=== PATIENT | male | born 1940 ===

== ENCOUNTER 2018-02-20 08:42 | Inpatient (IN) | payer MEDICARE ==
--- NOTE | 2018-02-20 09:12 | ED PDOC ---
HPI: Abdomen Time Seen by Provider: 02/20/18 09:00 Chief Complaint (Nursing): Abdominal Pain History Per: Patient Onset/Duration Of Symptoms: Hrs (1) Current Symptoms Are (Timing): Still Present Severity: Moderate Location Of Pain/Discomfort: Diffuse Quality Of Discomfort: Unable To Describe Associated Symptoms: Nausea. denies: Fever, Vomiting, Diarrhea Exacerbating Factors: None Alleviating Factors: None Additional Complaint(s): Generalized abd pain and distention assoc with nausea. Denies fever vomiting or diarrhea. Past Medical History Vital Signs: Last Vital Signs Temp 97.4 F L 02/20/18 08:57 Pulse 53 L 02/20/18 11:44 Resp 19 02/20/18 11:44 BP 111/57 L 02/20/18 11:44 Pulse Ox 98 02/20/18 11:44 - Medical History PMH: Gastritis, HTN, Hypercholesterolemia, Hyperlipidemia Other PMH: Ascites - Family History Family History: States: Unknown Family Hx - Allergies Allergies/Adverse Reactions: Allergies Allergy/AdvReac Type Severity Reaction Status Date / Time No Known Allergies Allergy Unverified 02/06/15 09:08 Review of Systems ROS Statement: Except As Marked, All Systems Reviewed And Found Negative Constitutional: Negative for: Fever Gastrointestinal: Positive for: Nausea, Abdominal Pain Physical Exam - Reviewed Nursing Documentation Reviewed: Yes Vital Signs Reviewed: Yes - Physical Exam Appears: Positive for: Non-toxic, No Acute Distress Head Exam: Positive for: ATRAUMATIC, NORMAL INSPECTION, NORMOCEPHALIC Skin: Positive for: Normal Color, Warm, DRY Eye Exam: Positive for: EOMI, Normal appearance, PERRL ENT: Positive for: Normal ENT Inspection Neck: Positive for: Normal, Painless ROM Cardiovascular/Chest: Positive for: Regular Rate, Rhythm Respiratory: Positive for: CNT, Normal Breath Sounds Gastrointestinal/Abdominal: Positive for: Tenderness (LUQ), Distended, Asicites Back: Positive for: Normal Inspection Extremity: Positive for: Normal ROM Neurologic/Psych: Positive for: Alert, Oriented - Laboratory Results Result Diagrams: 02/20/18 09:55 02/20/18 09:55 - ECG O2 Sat by Pulse Oximetry: 99 Disposition - Clinical Impression Clinical Impression: Ascites - Patient ED Disposition Is Patient to be Admitted: Yes - Disposition Disposition Time: 12:13 Condition: FAIR Forms: [employer] (Polish) - Pt Status Changed To: Hospital Disposition Of: Observation - POA Present On Arrival: None
[2018-02-20 10:00] LABS: BASO % 0.2 % (0.0-2.0); EOS % 1.2 % (0.0-4.0); HEMOGLOBIN 11.5 g/dL (12.0-18.0); LYMPH # 0.3 K/uL (1.0-4.3); LYMPH % 8.6 % (20.0-40.0); MEAN CELL VOLUME 98.9 fl (80.0-94.0); MEAN CORPUSCULAR HEMOGLOBIN 34.6 pg (27.0-31.0); MEAN PLATELET VOLUME 9.7 fl (7.2-11.7); MONO # 0.1 K/uL (0.0-0.8); MONO % 3.9 % (0.0-10.0); NEUT # 3.2 K/uL (1.8-7.0); NEUT % 86.1 % (50.0-75.0); NRBC % 0.1 % (0.0-0.0); PLATELET COUNT 130 K/uL (130-400); RBC 3.32 Mil/uL (4.40-5.90); WHITE BLOOD COUNT 3.7 K/uL (4.8-10.8)
[2018-02-20 10:10] LABS: INR 1.4; PROTHROMBIN TIME 15.7 Seconds (9.8-13.1)
[2018-02-20 10:30] LABS: ALB/GLOB RATIO 0.6 (1.0-2.1); ALBUMIN 2.8 g/dL (3.5-5.0); CALCIUM 8.9 mg/dL (8.4-10.2)
[2018-02-20 11:21] LABS: ANISOCYTOSIS SLIGHT; BANDS 6 % (0-2); EOSINOPHIL 3 % (0-7); HYPOCHROMIC SLIGHT; LYMPHOCYTE 10 % (20-50); MONOCYTE 1 % (0-10); NEUTROPHIL 80 % (42-75); PLATELET CLUMPS PRESENT; PLATELET ESTIMATE NORMAL (NORMAL); TOTAL CELLS COUNTED 100
[2018-02-20] MEDS ORDERED: Lidocaine 1% 5ml Abboject IV ONE (14:43)
[2018-02-20] MEDS: Dextrose 5%/Lactated Ringer's 1,000 ML IV SCH (16:56)
[2018-02-20 18:14] LABS: LIPASE 449 U/L (23-300)
[2018-02-20 21:49] LABS: HEPATITIS B SURFACE AG Negative (NEGATIVE)
[2018-02-20 22:07] LABS: HEPATITIS C ANTIBODY NEGATIVE (NEGATIVE)
--- NOTE | 2018-02-21 00:48 | CP.PCM.PCO ---
Progress - Progress Progress: 77 YO M admitted for ascitis had a new onset of gross hematuia tonight . Nurse paged the senior technical writer to come evaluate the patient. Patient states he had decreased urine output yesterday and this is the first time he has urinated today. Denies any family history of kidney stones . Patient is resting comfortably denies abdominal or flank pain. Denies any nausea, vomiting or diarrhea. Vitals and labs reviewed. Patient is not on any blood thiners. Gen: NAD CVS: S1S2 RRR Resp: CTAB no w/r/r Abd: Uniformly distended secondary to ascitis, soft, slight left lower quadrant tenderness Back: No CVA tenderness noted B/L A/P - PAtient resting comfortably - Will follow up with morning labs - Patient is scheduled for imaging studies in the am - Monitor vitals and urinary output -Send urine analysis
--- NOTE | 2018-02-21 00:57 | CON ---
Copied To: Mac Yoo MD Attending MD: Mac Yoo MD DATE: 02/20/2018 REFERRED BY: Vel Joyner MD HISTORY OF PRESENT ILLNESS: This is a very pleasant 77-year-old gentleman who has a known history of cirrhosis and portal hypertension who came in as an outpatient to here for an MRI, and the MRI was not done as he was complaining of abdominal distention and pain. Instead, he was sent to the ER. He is now referred now for GI evaluation. At the time of my evaluation this afternoon, he was lying comfortably in bed. He denies any fever, chills, nausea, or vomiting. There has been no blood per rectum, melena, or any loose stools. He just has some abdominal pain and discomfort over the last 24 hours and some increasing abdominal distention. At home, he was taking metformin, anti-lipid medication, and lisinopril. ALLERGIES: HE HAS NO KNOWN DRUG ALLERGIES. PAST MEDICAL HISTORY: He is a [id number] diabetic, hypertensive, hyperlipidemic, history of cirrhosis, portal hypertension with a known history of ascites. PAST SURGICAL HISTORY: Noncontributory. FAMILY HISTORY: Noncontributory. SOCIAL HISTORY: He is a former drinker and smoker. PHYSICAL EXAMINATION: GENERAL: He is a well-developed, well-nourished elderly gentleman. Awake, alert, and oriented x3, in no acute distress. VITAL SIGNS: His vital signs are stable. He is afebrile. ABDOMEN: His abdomen is markedly distended with fluid and is quite tender to palpation. There is no palpable mass or lesion fluid wave. EXTREMITIES: He does have 1 to 2+ bilateral lower extremity edema as well. GENITOURINARY: He does not have any scrotal edema. LABORATORY DATA: CBC is remarkable for white count 3.7, H and H 11.5 and 32.8, and platelet count 130. His INR is 1.4. His SMA-7 is remarkable for BUN and creatinine 33 and 1.7. His LFTs are remarkable for bilirubin of 3.4, AST of 104, ALT of 58, alk phos of 130. His ammonia is normal at 30. The MRI is pending. IMPRESSION AND PLAN: This is a 77-year-old gentleman with multiple medical problems including cirrhosis, portal hypertension and ascites, comes in with abdominal distention and pain and discomfort. No white blood cell count. No fevers. I doubt it is spontaneous bacterial peritonitis; however, I certainly would like to perform a paracentesis in this gentleman, and that has been requested Interventional Radiology to evaluate, so that they can do a diagnostic paracentesis as well as a therapeutic paracentesis to keep this patient more comfortable. I have also submitted the printout of the MRI done while here as an inpatient to rule out any underlying hepatic masses. We will follow along with you. Thank you very much for this referral. Mac Yoo MD
[2018-02-21 01:10] LABS: URINE BILIRUBIN NEGATIVE (NEGATIVE); URINE COLOR RED (YELLOW); URINE GLUCOSE (UA) NEG (Normal); URINE PROTEIN NEGATIVE (NEGATIVE); URINE UROBILINOGEN 0.2-1.0 mg/dL (0.2-1.0)
[2018-02-21 01:14] LABS: URINE BLOOD LARGE (NEGATIVE); URINE CLARITY Turbid (Clear)
[2018-02-21 01:18] LABS: URINE BACTERIA TRACE (<OCC)
[2018-02-21 01:19] LABS: URINE LEUKOCYTE ESTERASE NEGATIVE Leu/uL (Negative)
[2018-02-21] MEDS: Dextrose 5%/Lactated Ringer's 1,000 ML IV SCH (05:34)
[2018-02-21 06:48] LABS: BASO % 0.3 % (0.0-2.0); HEMOGLOBIN 10.7 g/dL (12.0-18.0); LYMPH # 0.5 K/uL (1.0-4.3); LYMPH % 6.8 % (20.0-40.0); MEAN CELL VOLUME 99.6 fl (80.0-94.0); MEAN CORPUSCULAR HEMOGLOBIN 34.7 pg (27.0-31.0); MEAN CORPUSCULAR HGB CONC 34.9 g/dL (33.0-37.0); MEAN PLATELET VOLUME 10.1 fl (7.2-11.7); MONO # 0.4 K/uL (0.0-0.8); MONO % 5.7 % (0.0-10.0); NEUT # 6.5 K/uL (1.8-7.0); NEUT % 87.2 % (50.0-75.0); NRBC % 0.1 % (0.0-0.0); RBC 3.07 Mil/uL (4.40-5.90); RED CELL DISTRIBUTION WIDTH 15.4 % (11.5-14.5); WHITE BLOOD COUNT 7.5 K/uL (4.8-10.8)
[2018-02-21 07:25] LABS: ALB/GLOB RATIO 0.6 (1.0-2.1); ALBUMIN 2.4 g/dL (3.5-5.0); CALCIUM 8.5 mg/dL (8.4-10.2)
--- NOTE | 2018-02-21 08:25 | CP.PCM.HP ---
History of Present Illness - History of Present Illness History of Present Illness: 77 yo M with diabetes and hyptertension, R eye blindness, admitted due to abdominal pain due to ascites with liver dysfunction, likely due to long time alcohol use in the past. Pt reports that for the past 2 months he has had increase in abdominal girth and increased abdominal pain; states he did not know he had any liver issues in the past. He was sent by his PMD Dr. Esperanza Paige to GI Dr. Sarmiento/Dr. Yoo, and then he was referred for MRI. Pt came to get outpt MRI yesterday, but was in too much pain to complete the scan, and was sent to the ED, from where he was admitted for therapeutic and diagnostic paracentesis. In the ED, he denied chest pain, shortness of breath, issues with voiding and stooling. PMH: DM2, HLD, HTN PSurg hx: hernia repair "many years ago" FH: noncontributory Allergies: NKDA Meds: metformin, rosuvastatin, hctz-lisinopril Overnight, pt experienced hematuria, states this happened for the first time. Present on Admission - Present on Admission Any Indicators Present on Admission: No Review of Systems - Review of Systems Review of Systems: as per HPI Past Patient History - Past Social History Smoking Status: Former Smoker Alcohol: Other (not current, but used to drink heavily on weekends in the past) Drugs: Denies - CARDIAC Hx Cardiac Disorders: Yes Hx Hypercholesterolemia: Yes Hx Hypertension: Yes - PULMONARY Hx Respiratory Disorders: No - NEUROLOGICAL Hx Neurological Disorder: No - HEENT Hx HEENT Problems: Yes Hx Blind: Yes (rt eye) - RENAL Hx Chronic Kidney Disease: No - ENDOCRINE/METABOLIC Hx Endocrine Disorders: Yes Hx Diabetes Mellitus Type 1: Yes - HEMATOLOGICAL/ONCOLOGICAL Hx Blood Disorders: No Hx AIDS: No Hx Human Immunodeficiency Virus (HIV): No - INTEGUMENTARY Hx Dermatological Problems: No - MUSCULOSKELETAL/RHEUMATOLOGICAL Hx Musculoskeletal Disorders: No Hx Falls: No - GASTROINTESTINAL Hx Gastrointestinal Disorders: Yes Hx Gastritis: Yes - GENITOURINARY/GYNECOLOGICAL Hx Genitourinary Disorders: No - PSYCHIATRIC Hx Psychophysiologic Disorder: No Hx Substance Use: No - SURGICAL HISTORY Hx Surgeries: Yes Hx Herniorrhaphy: Yes Other/Comment: abdominal hernia, right eye blind - ANESTHESIA Hx Anesthesia: Yes Hx Anesthesia Reactions: No Meds Allergies/Adverse Reactions: Allergies Allergy/AdvReac Type Severity Reaction Status Date / Time No Known Allergies Allergy Unverified 02/06/15 09:08 Physical Exam - Constitutional Appears: No Acute Distress - Eye Exam Eye Exam: Normal appearance Additional comments: R eye mostly shut; patient can open; iris/pupil cloudy; pt is blind in R eye - ENT Exam ENT Exam: Mucous Membranes Moist - Respiratory Exam Respiratory Exam: Clear to Auscultation Bilateral, NORMAL BREATHING PATTERN - Cardiovascular Exam Cardiovascular Exam: REGULAR RHYTHM, +S1, +S2 - GI/Abdominal Exam GI & Abdominal Exam: Distended, Soft, Tenderness (diffuse) Additional comments: + fluid wave - Extremities Exam Extremities exam: Negative for: calf tenderness, pedal edema - Neurological Exam Neurological exam: Alert - Psychiatric Exam Psychiatric exam: Normal Affect - Skin Skin Exam: Normal Color, Warm Results - Vital Signs Recent Vital Signs: Last Vital Signs Temp 97.4 F L 02/21/18 08:24 Pulse 60 02/21/18 08:24 Resp 18 02/21/18 08:24 BP 121/57 L 02/21/18 08:24 Pulse Ox 95 02/21/18 08:24 - Labs Result Diagrams: 02/21/18 06:10 02/21/18 06:10 Labs: Laboratory Results - last 24 hr 02/20/18 02/20/18 02/20/18 08:58 09:55 09:55 WBC 3.7 L RBC 3.32 L Hgb 11.5 L Hct 32.8 L MCV 98.9 H MCH 34.6 H MCHC 35.0 RDW 15.0 H Plt Count 130 MPV 9.7 Neut % (Auto) 86.1 H Lymph % (Auto) 8.6 L [place] % (Auto) 3.9 Eos % (Auto) 1.2 Baso % (Auto) 0.2 Neut # (Auto) 3.2 Lymph # (Auto) 0.3 L [place] # (Auto) 0.1 Eos # (Auto) 0.0 Baso # (Auto) 0.0 Neutrophils % (Manual) 80 H Band Neutrophils % 6 H Lymphocytes % (Manual) 10 L Monocytes % (Manual) 1 Eosinophils % (Manual) 3 Platelet Estimate Normal Plt Clumps, EDTA Present Hypochromasia (manual) Slight Anisocytosis (manual) Slight PT INR APTT Sodium 139 Potassium 4.9 Chloride 110 H Carbon Dioxide 21 L Anion Gap 13 BUN 33 H Creatinine 1.7 H Est GFR ( Amer) 48 Est GFR (Non-Af Amer) 39 POC Glucose (mg/dL) 121 H Random Glucose 115 H Calcium 8.9 Total Bilirubin 3.4 H AST 104 H ALT 58 Alkaline Phosphatase 130 H Ammonia Total Protein 7.3 Albumin 2.8 L Globulin 4.5 H Albumin/Globulin Ratio 0.6 L Lipase Urine Color Urine Clarity Urine pH Ur Specific [place] Urine Protein Urine Glucose (UA) Urine Ketones Urine Blood Urine Nitrate Urine Bilirubin Urine Urobilinogen Ur Leukocyte Esterase Urine RBC (Auto) Urine Microscopic WBC Urine Bacteria Hep Bs Antigen Hepatitis C Antibody 02/20/18 02/20/18 02/20/18 09:55 09:55 15:41 WBC RBC Hgb Hct MCV MCH MCHC RDW Plt Count MPV Neut % (Auto) Lymph % (Auto) [place] % (Auto) Eos % (Auto) Baso % (Auto) Neut # (Auto) Lymph # (Auto) [place] # (Auto) Eos # (Auto) Baso # (Auto) Neutrophils % (Manual) Band Neutrophils % Lymphocytes % (Manual) Monocytes % (Manual) Eosinophils % (Manual) Platelet Estimate Plt Clumps, EDTA Hypochromasia (manual) Anisocytosis (manual) PT 15.7 H INR 1.4 APTT Sodium Potassium Chloride Carbon Dioxide Anion Gap BUN Creatinine Est GFR ( Amer) Est GFR (Non-Af Amer) POC Glucose (mg/dL) 101 Random Glucose Calcium Total Bilirubin AST ALT Alkaline Phosphatase Ammonia 30 Total Protein Albumin Globulin Albumin/Globulin Ratio Lipase Urine Color Urine Clarity Urine pH Ur Specific [place] Urine Protein Urine Glucose (UA) Urine Ketones Urine Blood Urine Nitrate Urine Bilirubin Urine Urobilinogen Ur Leukocyte Esterase Urine RBC (Auto) Urine Microscopic WBC Urine Bacteria Hep Bs Antigen Hepatitis C Antibody 02/20/18 02/20/18 02/21/18 17:51 21:31 00:20 WBC RBC Hgb Hct MCV MCH MCHC RDW Plt Count MPV Neut % (Auto) Lymph % (Auto) [place] % (Auto) Eos % (Auto) Baso % (Auto) Neut # (Auto) Lymph # (Auto) [place] # (Auto) Eos # (Auto) Baso # (Auto) Neutrophils % (Manual) Band Neutrophils % Lymphocytes % (Manual) Monocytes % (Manual) Eosinophils % (Manual) Platelet Estimate Plt Clumps, EDTA Hypochromasia (manual) Anisocytosis (manual) PT INR APTT Sodium Potassium Chloride Carbon Dioxide Anion Gap BUN Creatinine Est GFR ( Amer) Est GFR (Non-Af Amer) POC Glucose (mg/dL) 210 H Random Glucose Calcium Total Bilirubin AST ALT Alkaline Phosphatase Ammonia Total Protein Albumin Globulin Albumin/Globulin Ratio Lipase 449 H Urine Color Red Urine Clarity Turbid Urine pH 7.0 Ur Specific [place] 1.053 H Urine Protein Negative Urine Glucose (UA) Neg Urine Ketones Negative Urine Blood Large Urine Nitrate Negative Urine Bilirubin Negative Urine Urobilinogen 0.2-1.0 Ur Leukocyte Esterase Negative Urine RBC (Auto) 55406 H Urine Microscopic WBC 5 Urine Bacteria Trace Hep Bs Antigen Negative Hepatitis C Antibody Negative 02/21/18 02/21/18 02/21/18 05:47 06:10 06:10 WBC 7.5 D RBC 3.07 L Hgb 10.7 L Hct 30.6 L MCV 99.6 H MCH 34.7 H MCHC 34.9 RDW 15.4 H Plt Count 93 L D MPV 10.1 Neut % (Auto) 87.2 H Lymph % (Auto) 6.8 L [place] % (Auto) 5.7 Eos % (Auto) 0.0 Baso % (Auto) 0.3 Neut # (Auto) 6.5 Lymph # (Auto) 0.5 L [place] # (Auto) 0.4 Eos # (Auto) 0.0 Baso # (Auto) 0.0 Neutrophils % (Manual) Band Neutrophils % Lymphocytes % (Manual) Monocytes % (Manual) Eosinophils % (Manual) Platelet Estimate Plt Clumps, EDTA Hypochromasia (manual) Anisocytosis (manual) PT INR APTT Sodium 138 Potassium 5.1 H Chloride 109 H Carbon Dioxide 21 L Anion Gap 13 BUN 44 H Creatinine 2.5 H Est GFR ( Amer) 31 Est GFR (Non-Af Amer) 25 POC Glucose (mg/dL) 188 H Random Glucose 196 H Calcium 8.5 Total Bilirubin 2.1 H AST 72 H D ALT 51 Alkaline Phosphatase 95 Ammonia Total Protein 6.7 Albumin 2.4 L Globulin 4.2 H Albumin/Globulin Ratio 0.6 L Lipase Urine Color Urine Clarity Urine pH Ur Specific [place] Urine Protein Urine Glucose (UA) Urine Ketones Urine Blood Urine Nitrate Urine Bilirubin Urine Urobilinogen Ur Leukocyte Esterase Urine RBC (Auto) Urine Microscopic WBC Urine Bacteria Hep Bs Antigen Hepatitis C Antibody 02/21/18 06:10 WBC RBC Hgb Hct MCV MCH MCHC RDW Plt Count MPV Neut % (Auto) Lymph % (Auto) [place] % (Auto) Eos % (Auto) Baso % (Auto) Neut # (Auto) Lymph # (Auto) [place] # (Auto) Eos # (Auto) Baso # (Auto) Neutrophils % (Manual) Band Neutrophils % Lymphocytes % (Manual) Monocytes % (Manual) Eosinophils % (Manual) Platelet Estimate Plt Clumps, EDTA Hypochromasia (manual) Anisocytosis (manual) PT INR APTT 36.1 Sodium Potassium Chloride Carbon Dioxide Anion Gap BUN Creatinine Est GFR ( Amer) Est GFR (Non-Af Amer) POC Glucose (mg/dL) Random Glucose Calcium Total Bilirubin AST ALT Alkaline Phosphatase Ammonia Total Protein Albumin Globulin Albumin/Globulin Ratio Lipase Urine Color Urine Clarity Urine pH Ur Specific [place] Urine Protein Urine Glucose (UA) Urine Ketones Urine Blood Urine Nitrate Urine Bilirubin Urine Urobilinogen Ur Leukocyte Esterase Urine RBC (Auto) Urine Microscopic WBC Urine Bacteria Hep Bs Antigen Hepatitis C Antibody Assessment & Plan (1) Ascites Status: Acute (2) Hematuria Status: Acute (3) Hypertension Status: Chronic (4) Hyperlipidemia Status: Chronic - Assessment and Plan (Free Text) Plan: - admitted to med surg - for paracentesis today; fluid to be sent for cytology, analysis - aldactone, lasix - GI consult - Dr. Yoo - Urology consult- Dr. Fleming - IV hydration for kidney function improvement - GI/hepatic diet - scds Pt seen/discussed with Dr. Joyner.
[2018-02-21] MEDS ORDERED: Patient's Own Med (Lisinopril/Hydrochlorothiazide [Lisinopril-Hctz 20-25 Mg Tab] 1 TAB) PO SCH (09:00)
[2018-02-21 11:25] LABS: INR 1.6; PROTHROMBIN TIME 17.4 Seconds (9.8-13.1)
[2018-02-21] MEDS ORDERED: Lidocaine 1% 5ml Abboject IV ONE (11:25)
[2018-02-21] MEDS ORDERED: Glucagon Recombinant 1 mg Inj IM PRN (12:02)
[2018-02-21] MEDS ORDERED: Dextrose 50% SYRINGE Inj (50 ml) IV PRN (12:02)
--- NOTE | 2018-02-21 12:06 | PCM.SURG1 ---
Surgeon's Initial Post Op Note - Surgeon's Notes Surgeon: Ramo Shaw MD [employer] Operator: NONE Type of Anesthesia: Local Pre-Operative Diagnosis: Ascites Operative Findings: US showed moderate ascites Post-Operative Diagnosis: Ascites Operation Performed: US guided paracentesis Specimen/Specimens Removed: 3 liters of straw colored fluid Estimated Blood Loss: EBL {In ML}: 0 Blood Products Given: N/A Drains Used: No Drains Post-Op Condition: Fair Date of Surgery/Procedure: 02/21/18 Time of Surgery/Procedure: 12:00
[2018-02-21] MEDS: Insulin Regular 100 units/ml SC SCH ×3 (12:28→22:33)
[2018-02-21 12:54] LABS: BODY FLUID TYPE PERITONEAL/ASCITES
--- NOTE | 2018-02-21 13:48 | US ---
Date of Procedure: 02/21/2018 PROCEDURE: Ultrasound-guided paracentesis, CPT 50039 Medications: 7 cc 1% Lidocaine HISTORY: Ascites, abdominal pain TECHNIQUE: Following informed consent , the patient was placed supine on the stretcher and the site was marked. A limited abdominal ultrasound was performed that showed a large amount of intra-abdominal fluid. Procedural time out was called and the Pt's abdomen was marked and prepped and draped in the usual sterile fashion. Ultrasound-guided large volume paracentesis performed. A total of 3 liters of straw colored fluid was removed without complication. IMPRESSION: Ultrasound-guided large volume paracentesis.
[2018-02-21 14:59] LABS: BF GROSS APPEARANCE TURBID (CLEAR); BODY FLUID MONO/MACROPHAGE 3 % (0-0); BODY FLUID TOTAL COUNT 100 (0-0)
[2018-02-22 06:34] LABS: HEMOGLOBIN 12.3 g/dL (12.0-18.0); MEAN CELL VOLUME 96.5 fl (80.0-94.0); MEAN CORPUSCULAR HEMOGLOBIN 32.5 pg (27.0-31.0); MEAN CORPUSCULAR HGB CONC 33.7 g/dL (33.0-37.0); RBC 3.79 Mil/uL (4.40-5.90); RED CELL DISTRIBUTION WIDTH 15.3 % (11.5-14.5); WHITE BLOOD COUNT 11.1 K/uL (4.8-10.8)
[2018-02-22 07:39] LABS: ALB/GLOB RATIO 0.6 (1.0-2.1); ALBUMIN 2.7 g/dL (3.5-5.0); CALCIUM 8.9 mg/dL (8.4-10.2)
[2018-02-22] MEDS: Insulin Regular 100 units/ml SC SCH ×3 (09:07→21:57)
--- NOTE | 2018-02-22 09:53 | CP.PCM.PN ---
Subjective - Date & Time of Evaluation Date of Evaluation: 02/21/18 Time of Evaluation: 15:10 - Subjective Subjective: no abd pain Objective - Vital Signs/Intake and Output Vital Signs (last 24 hours): Temp Pulse Resp BP Pulse Ox 98.1 F 80 20 106/62 97 02/22/18 08:08 02/22/18 08:08 02/22/18 08:08 02/22/18 09:10 02/22/18 08:08 - Medications Medications: Current Medications Acetaminophen (Tylenol 325mg Tab) 650 mg PO Q6 PRN PRN Reason: Pain, moderate (4-7) Last Admin: 02/22/18 04:50 Dose: 650 mg Dextrose (Dextrose 50% Inj) 0 ml IV STAT PRN; Protocol PRN Reason: Hypoglycemia Protocol Dextrose (Glutose 15) 0 gm PO ONCE PRN; Protocol PRN Reason: Hypoglycemia Protocol Furosemide (Lasix) 40 mg PO DAILY [facility] Last Admin: 02/22/18 09:10 Dose: 40 mg Glucagon (Glucagen Diagnostic Kit) 0 mg IM STAT PRN; Protocol PRN Reason: Hypoglycemia Protocol Hydrochlorothiazide (Hydrodiuril) 25 mg PO DAILY [facility] Insulin Human Regular (Humulin R) 0 units SC ACHS DELANEY PRN Reason: Protocol Last Admin: 02/22/18 09:07 Dose: Not Given Lisinopril (Zestril) 20 mg PO DAILY [facility] Last Admin: 02/21/18 09:08 Dose: 20 mg Spironolactone (Aldactone) 50 mg PO DAILY [facility] Last Admin: 02/22/18 09:10 Dose: 50 mg - Labs Labs: 02/22/18 06:10 02/22/18 06:10 PT 17.4 Seconds (9.8-13.1) H 02/21/18 11:06 INR 1.6 02/21/18 11:06 APTT 36.1 Seconds (25.6-37.1) 02/21/18 06:10 - Head Exam Head Exam: NORMOCEPHALIC - ENT Exam ENT Exam: Normal Exam - Neck Exam Neck Exam: Normal Inspection - Respiratory Exam Respiratory Exam: Clear to Ausculation Bilateral, NORMAL BREATHING PATTERN - GI/Abdominal Exam GI & Abdominal Exam: Soft, Normal Bowel Sounds Assessment and Plan - Assessment and Plan (Free Text) Assessment: 77 yo male with decompensated cirrhosis doing well post paracentesis Cr Cl to low for MRI wth contrast dc planning for outpatient MRI
--- NOTE | 2018-02-22 10:39 | CP.PCM.PN ---
Subjective - Date & Time of Evaluation Date of Evaluation: 02/22/18 Time of Evaluation: 10:38 - Subjective Subjective: c/o pain Objective - Vital Signs/Intake and Output Vital Signs (last 24 hours): Temp Pulse Resp BP Pulse Ox 98.1 F 80 20 106/62 97 02/22/18 08:08 02/22/18 08:08 02/22/18 08:08 02/22/18 09:10 02/22/18 08:08 - Medications Medications: Current Medications Acetaminophen (Tylenol 325mg Tab) 650 mg PO Q6 PRN PRN Reason: Pain, moderate (4-7) Last Admin: 02/22/18 04:50 Dose: 650 mg Dextrose (Dextrose 50% Inj) 0 ml IV STAT PRN; Protocol PRN Reason: Hypoglycemia Protocol Dextrose (Glutose 15) 0 gm PO ONCE PRN; Protocol PRN Reason: Hypoglycemia Protocol Furosemide (Lasix) 40 mg PO DAILY [facility] Last Admin: 02/22/18 09:10 Dose: 40 mg Glucagon (Glucagen Diagnostic Kit) 0 mg IM STAT PRN; Protocol PRN Reason: Hypoglycemia Protocol Hydrochlorothiazide (Hydrodiuril) 25 mg PO DAILY [facility] Insulin Human Regular (Humulin R) 0 units SC ACHS [place] PRN Reason: Protocol Last Admin: 02/22/18 09:07 Dose: Not Given Lisinopril (Zestril) 20 mg PO DAILY [facility] Last Admin: 02/21/18 09:08 Dose: 20 mg Spironolactone (Aldactone) 50 mg PO DAILY [facility] Last Admin: 02/22/18 09:10 Dose: 50 mg - Labs Labs: 02/22/18 06:10 02/22/18 06:10 PT 17.4 Seconds (9.8-13.1) H 02/21/18 11:06 INR 1.6 02/21/18 11:06 APTT 36.1 Seconds (25.6-37.1) 02/21/18 06:10 - Neck Exam Neck Exam: Normal Inspection - Respiratory Exam Respiratory Exam: Clear to Ausculation Bilateral, NORMAL BREATHING PATTERN - Cardiovascular Exam Cardiovascular Exam: REGULAR RHYTHM - GI/Abdominal Exam GI & Abdominal Exam: Distended, Soft, Tenderness, Normal Bowel Sounds Assessment and Plan - Assessment and Plan (Free Text) Assessment: 77 yo male with ascites now with SBP Abx ID input KUB consider kirby for urinary outflow obstruction
[2018-02-22] MEDS ORDERED: Lactated Ringer's 500 ML IV ONE (12:15)
[2018-02-22] MEDS ORDERED: Lidocaine 2% Jelly (Uro-Jet) ONE (12:29)
[2018-02-22] MEDS ORDERED: Lidocaine 2% Jelly (Uro-Jet) TOP ONE (12:35)
[2018-02-22] MEDS ORDERED: Sodium Chloride 0.9% 500 ML IV ONE (13:00)
[2018-02-22] MEDS: Albumin Human 25% (12.5 gm/50 ml) IV SCH ×2 (14:38→22:30)
--- NOTE | 2018-02-22 19:00 | CP.PCM.CON ---
History of Present Illness - History of Present Illness History of Present Illness: 77 yo M admitted due to abdominal pain due to ascites with liver dysfunction, likely due to long time alcohol use in the past. Pt reports that for the past 2 months he has had increase in abdominal girth and increased abdominal pain; . Pt came to get outpt MRI yesterday, but was in too much pain to complete the scan, and was sent to the ED, from where he was admitted for therapeutic and diagnostic paracentesis. In the ED, he denied chest pain, shortness of breath, issues with voiding referred for ID eval of SBP r/o occult malignancy PMH: DM2, HLD, HTN with diabetes and hyptertension, R eye blindness, PSurg hx: hernia repair "many years ago" FH: noncontributory Allergies: NKDA Meds: metformin, rosuvastatin, hctz-lisinopril Review of Systems - Review of Systems All systems: reviewed and no additional remarkable complaints except - Constitutional Constitutional: As Per HPI - EENT Eyes: absent: As Per HPI, Blind Spots, Blurred Vision, Change in Vision, Decreased Night Vision, Diplopia, Discharge, Dry Eye, Exophthalmos, Floaters, Irritation, Itchy Eyes, Loss of Peripheral Vision, Pain, Photophobia, Requires Corrective Lenses, Sees Flashes, Spots in Vision, Tunnel Vision, Other Visual Disturbances, Loss of Vision, Other Ears: As Per HPI Nose/Mouth/Throat: absent: As Per HPI, Epistaxis, Nasal Congestion, Nasal Discharge, Nasal Obstruction, Nasal Trauma, Nose Pain, Post Nasal Drip, Sinus Pain, Sinus Pressure, Bleeding Gums, Change in Voice, Dental Pain, Dry Mouth, Dysphagia, Halitosis, Hoarsness, Lip Swelling, Mouth Lesions, Mouth Pain, Odynophagia, Sore Throat, Throat Swelling, Tongue Swelling, Facial Pain, Neck Pain, Neck Mass, Other - Cardiovascular Cardiovascular: absent: As Per HPI, Acrocyanosis, Chest Pain, Chest Pain at Rest , Chest Pain with Activity, Claudication, Diaphoresis, Dyspnea, Dyspnea on Exertion, Edema, Irregular Heart Rhythm, Pain Radiating to Arm/Neck/Jaw, Leg Edema, Leg Ulcers, Lightheadedness, Orthopnea, Palpitations, Paroxysmal Nocturnal Dyspnea, Pedal Edema, Radiating Pain, Rapid Heart Rate, Slow Heart Rate, Syncope, Other - Respiratory Respiratory: absent: As Per HPI, Cough, Dyspnea, Hemoptysis, Dyspnea on Exertion , Wheezing, Snoring, Stridor, Pain on Inspiration, Chest Congestion, Excessive Mucous Production, Change in Mucous Color, Pain with Coughing, Other - Gastrointestinal Gastrointestinal: As Per HPI, Abdominal Pain - Genitourinary Genitourinary: As Per HPI - Musculoskeletal Musculoskeletal: absent: As Per HPI, Abnormal Gait, Arthralgias, Atrophy, Back Pain, Deformity, Joint Swelling, Limited Range of Motion, Loss of Height, Muscle Cramps, Muscle Weakness, Myalgias, Neck Pain, Numbness, Radiating Pain into Limb, Stiffness, Tingling, Other - Integumentary Integumentary: absent: As Per HPI, Acne, Alopecia, Bleeding Lesions, Change in Hair, Change in Nails, Change in Pigmentation, Changing Lesions, Dry Skin, Erythema, Furuncle, Hirsutism, Lesions, New Lesions, Non-Healing Lesions, Photosensitivity, Pruritus, Rash, Skin Pain, Skin Ulcer, Sores, Striae, Swelling , Unusual Bruising, Wounds, Jaundice, Other - Neurological Neurological: absent: As Per HPI, Abnormal Gait, Abnormal Hearing, Abnormal Movements, Abnormal Speech, Behavioral Changes, Burning Sensations, Confusion, Convulsions, Disequilibrium, Dizziness, Numbness, Focal Weakness, Frequent Falls , Headaches, Lack of Coordination, Loss of Vision, Memory Loss, Paresthesias, Radicular Pain, Restless Legs, Sensory Deficit, Syncope, Tingling, Tremor, Vertigo, Weakness, Other Visual Disturbances, Other - Psychiatric Psychiatric: absent: As Per HPI, Abnormal Sleep Pattern, Anhedonia, Anxiety, Auditory Hallucinations, Behavioral Changes, Change in Appetite, Change in Libido, Confusion, Depression, Difficulty Concentrating, Hallucinations, Homicidal Ideation, Hopelessness, Irritability, Memory Loss, Mood Swings, Panic Attacks, Paranoia, Suicidal Ideation, Visual Hallucinations, Tactile Hallucinations, Other - Endocrine Endocrine: absent: As Per HPI, Change in Body Appearance, Change in Libido, Cold Intolorance, Deepening of Voice, Excessive Sweating, Fatigue, Flushing, Heat Intolorance, Increase in Ring/Shoe/Hat Size, Palpitations, Polydipsia, Polyphagia, Polyuria, Other - Hematologic/Lymphatic Hematologic: absent: As Per HPI, Easy Bleeding, Easy Bruising, Lymphadenopathy, Other Past Patient History - Past Social History Smoking Status: Former Smoker Alcohol: Other (not current, but used to drink heavily on weekends in the past) Drugs: Denies - CARDIAC Hx Cardiac Disorders: Yes Hx Hypercholesterolemia: Yes Hx Hypertension: Yes - PULMONARY Hx Respiratory Disorders: No - NEUROLOGICAL Hx Neurological Disorder: No - HEENT Hx HEENT Problems: Yes Hx Blind: Yes (rt eye) - RENAL Hx Chronic Kidney Disease: No - ENDOCRINE/METABOLIC Hx Endocrine Disorders: Yes Hx Diabetes Mellitus Type 1: Yes - HEMATOLOGICAL/ONCOLOGICAL Hx Blood Disorders: No Hx AIDS: No Hx Human Immunodeficiency Virus (HIV): No - INTEGUMENTARY Hx Dermatological Problems: No - MUSCULOSKELETAL/RHEUMATOLOGICAL Hx Musculoskeletal Disorders: No Hx Falls: No - GASTROINTESTINAL Hx Gastrointestinal Disorders: Yes Hx Gastritis: Yes - GENITOURINARY/GYNECOLOGICAL Hx Genitourinary Disorders: No - PSYCHIATRIC Hx Psychophysiologic Disorder: No Hx Substance Use: No - SURGICAL HISTORY Hx Surgeries: Yes Hx Herniorrhaphy: Yes Other/Comment: abdominal hernia, right eye blind - ANESTHESIA Hx Anesthesia: Yes Hx Anesthesia Reactions: No Meds Allergies/Adverse Reactions: Allergies Allergy/AdvReac Type Severity Reaction Status Date / Time No Known Allergies Allergy Unverified 02/06/15 09:08 - Medications Medications: Current Medications Acetaminophen (Tylenol 325mg Tab) 650 mg PO Q6 PRN PRN Reason: Pain, moderate (4-7) Last Admin: 02/22/18 13:30 Dose: 650 mg Albumin Human (Albumin Human 25% (12.5 Gm/50 Ml)) 50 gm IV Q8H [facility] Last Admin: 02/22/18 14:38 Dose: 50 gm Dextrose (Dextrose 50% Inj) 0 ml IV STAT PRN; Protocol PRN Reason: Hypoglycemia Protocol Dextrose (Glutose 15) 0 gm PO ONCE PRN; Protocol PRN Reason: Hypoglycemia Protocol Furosemide (Lasix) 40 mg PO DAILY [facility] Last Admin: 02/22/18 09:10 Dose: 40 mg Glucagon (Glucagen Diagnostic Kit) 0 mg IM STAT PRN; Protocol PRN Reason: Hypoglycemia Protocol Hydrochlorothiazide (Hydrodiuril) 25 mg PO DAILY [facility] Ceftriaxone Sodium 1 gm/ (Sodium Chloride) 100 mls @ 100 mls/hr IVPB DAILY [facility] PRN Reason: Protocol Last Admin: 02/22/18 11:52 Dose: 100 mls/hr Insulin Human Regular (Humulin R) 0 units SC ACHS [facility] PRN Reason: Protocol Last Admin: 02/22/18 09:07 Dose: Not Given Lisinopril (Zestril) 20 mg PO DAILY [facility] Last Admin: 02/21/18 09:08 Dose: 20 mg Spironolactone (Aldactone) 50 mg PO DAILY [facility] Last Admin: 02/22/18 09:10 Dose: 50 mg Physical Exam - Constitutional Appears: Non-toxic, Chronically Ill - Head Exam Head Exam: NORMOCEPHALIC - Eye Exam Eye Exam: PERRL. absent: Scleral icterus - ENT Exam ENT Exam: Mucous Membranes Dry - Neck Exam Neck exam: Negative for: Lymphadenopathy - Respiratory Exam Respiratory Exam: Decreased Breath Sounds, Rhonchi - Cardiovascular Exam Cardiovascular Exam: REGULAR RHYTHM, +S1, +S2 - GI/Abdominal Exam GI & Abdominal Exam: Diminished Bowel Sounds, Distended, Guarding, Soft. absent : Organomegaly, Pulsatile Mass, Rebound, Rigid, Tenderness - Rectal Exam Rectal Exam: Deferred - Exam Exam: NORMAL INSPECTION - Extremities Exam Extremities exam: Positive for: pedal edema, pedal pulses present. Negative for : calf tenderness, tenderness - Back Exam Back exam: absent: CVA tenderness (L), CVA tenderness (R), paraspinal tenderness - Neurological Exam Neurological exam: Alert, CN II-XII Intact, Oriented x3, Reflexes Normal - Psychiatric Exam Psychiatric exam: Normal Mood - Skin Skin Exam: Dry Results - Vital Signs Recent Vital Signs: Last Vital Signs Temp 97.5 F L 02/22/18 17:00 Pulse 84 02/22/18 17:30 Resp 19 02/22/18 17:30 BP 97/53 L 02/22/18 17:30 Pulse Ox 100 02/22/18 17:30 - Labs Result Diagrams: 02/22/18 06:10 02/22/18 06:10 Labs: Laboratory Results - last 24 hr 02/21/18 02/22/18 02/22/18 22:05 05:55 06:10 WBC 11.1 H RBC 3.79 L Hgb 12.3 Hct 36.6 MCV 96.5 H D MCH 32.5 H MCHC 33.7 RDW 15.3 H Plt Count 135 Sodium Potassium Chloride Carbon Dioxide Anion Gap BUN Creatinine Est GFR ( Amer) Est GFR (Non-Af Amer) POC Glucose (mg/dL) 115 H 101 Random Glucose Calcium Total Bilirubin AST ALT Alkaline Phosphatase Total Protein Albumin Globulin Albumin/Globulin Ratio 02/22/18 02/22/18 06:10 14:20 WBC RBC Hgb Hct MCV MCH MCHC RDW Plt Count Sodium 138 Potassium 4.8 Chloride 106 Carbon Dioxide 19 L Anion Gap 18 BUN 58 H Creatinine 2.6 H Est GFR ( Amer) 29 Est GFR (Non-Af Amer) 24 POC Glucose (mg/dL) 121 H Random Glucose 111 H Calcium 8.9 Total Bilirubin 2.0 H AST 69 H ALT 41 Alkaline Phosphatase 114 Total Protein 7.2 Albumin 2.7 L Globulin 4.4 H Albumin/Globulin Ratio 0.6 L Assessment & Plan (1) [id number] kidney injury Status: Acute (2) Ascites Status: Acute (3) Hematuria Status: Acute (4) Hyperlipidemia Status: Chronic (5) Hypertension Status: Chronic (6) CKD (chronic kidney disease) stage 3, GFR 30-59 ml/min Status: Suspected - Assessment and Plan (Free Text) Assessment: await OR cultures cont iv zosyn vanco for now pending cultures will need min 7 days rx consider eval
--- NOTE | 2018-02-22 19:48 | CP.PCM.PN ---
Subjective - Date & Time of Evaluation Date of Evaluation: 02/22/18 Time of Evaluation: 11:00 - Subjective Subjective: 77 y/o M complains of mild abdominal pain. Bladder scan performed by bedside, 1006cc of urine retention identified. Perry catheter ordered, urology made aware. Pt afebrile overnight. Objective - Vital Signs/Intake and Output Vital Signs (last 24 hours): Temp Pulse Resp BP Pulse Ox 97.5 F L 84 19 97/53 L 100 02/22/18 17:00 02/22/18 17:30 02/22/18 17:30 02/22/18 17:30 02/22/18 17:30 Intake and Output: 02/22/18 02/23/18 18:59 06:59 Intake Total 50 Output Total 10276 Balance -26761 - Medications Medications: Current Medications Acetaminophen (Tylenol 325mg Tab) 650 mg PO Q6 PRN PRN Reason: Pain, moderate (4-7) Last Admin: 02/22/18 13:30 Dose: 650 mg Albumin Human (Albumin Human 25% (12.5 Gm/50 Ml)) 50 gm IV Q8H [facility] Last Admin: 02/22/18 14:38 Dose: 50 gm Dextrose (Dextrose 50% Inj) 0 ml IV STAT PRN; Protocol PRN Reason: Hypoglycemia Protocol Dextrose (Glutose 15) 0 gm PO ONCE PRN; Protocol PRN Reason: Hypoglycemia Protocol Furosemide (Lasix) 40 mg PO DAILY [facility] Last Admin: 02/22/18 09:10 Dose: 40 mg Glucagon (Glucagen Diagnostic Kit) 0 mg IM STAT PRN; Protocol PRN Reason: Hypoglycemia Protocol Hydrochlorothiazide (Hydrodiuril) 25 mg PO DAILY [facility] Piperacillin Sod/Tazobactam (Sod 2.25 gm/ Sodium Chloride) 100 mls @ 100 mls/ hr IVPB Q8 [facility] PRN Reason: Protocol Insulin Human Regular (Humulin R) 0 units SC ACHS [facility] PRN Reason: Protocol Last Admin: 02/22/18 09:07 Dose: Not Given Lisinopril (Zestril) 20 mg PO DAILY [facility] Last Admin: 02/21/18 09:08 Dose: 20 mg Spironolactone (Aldactone) 50 mg PO DAILY [facility] Last Admin: 02/22/18 09:10 Dose: 50 mg - Labs Labs: 02/22/18 06:10 02/22/18 06:10 PT 17.4 Seconds (9.8-13.1) H 02/21/18 11:06 INR 1.6 02/21/18 11:06 APTT 36.1 Seconds (25.6-37.1) 02/21/18 06:10 - Constitutional Appears: Non-toxic - Head Exam Head Exam: ATRAUMATIC, NORMAL INSPECTION - Eye Exam Eye Exam: EOMI - Neck Exam Neck Exam: Full ROM. absent: Meningismus - Respiratory Exam Respiratory Exam: NORMAL BREATHING PATTERN. absent: Rhonchi, Wheezes - Cardiovascular Exam Cardiovascular Exam: +S1, +S2 - GI/Abdominal Exam GI & Abdominal Exam: Distended, Soft, Tenderness (diffuse) - Extremities Exam Extremities Exam: absent: Calf Tenderness - Neurological Exam Neurological Exam: Alert, Awake, Oriented x3 Assessment and Plan - Assessment and Plan (Free Text) Assessment: 77 y/o M with PMHx of alcoholism admitted for evaluation of abdominal distension , ascitis and hematuria. --Urinary retention discovered. Urology, Dr Fleming, planing to perform cystosocopy. --GI on board, Dr Sarmiento. --SBP found after paracentesis. --On Zosyn Q8H. --F/u ID, Dr Hayes, recommendation --After cystoscopy, pt developed hypotension. Albumin Q8H was ordered after consulting with GI specialist. --Pt transfered to Telemetry due to hypotension. Monitor vital signs and cardiac monitoring. --IV Morphine administered once due to severe pain after cystoscopy. --Continue management as ordered.
--- NOTE | 2018-02-23 00:30 | OP ---
Copied To: Shawna Fleming MD Attending MD: Shawna Fleming MD PROCEDURE DATE: 02/22/2018 PREOPERATIVE DIAGNOSES: Urinary retention, unable to pass Perry catheters on the floor. POSTOPERATIVE DIAGNOSES: Urinary retention, unable to pass Perry catheters on the floor. PROCEDURE PERFORMED: Cystoscopy, insertion of three-way Perry catheter. DESCRIPTION OF PROCEDURE: The patient was placed on the operating room table in a dorsal lithotomy position, given local and IV sedation at this time with a #22 cystoscope I entered into the bladder atraumatically. There were some small clots in the bladder itself. I was able then to insert #22 three-way Perry catheter. The bladder was free of any acute lesions. Ureteral orifices were identified. The three-way Perry catheter was inserted. CBI was begun. The urine outflow was essentially clear. Shawna Fleming MD
[2018-02-23 05:20] LABS: HEMOGLOBIN 10.4 g/dL (12.0-18.0); MEAN CELL VOLUME 96.3 fl (80.0-94.0); MEAN CORPUSCULAR HEMOGLOBIN 31.9 pg (27.0-31.0); MEAN CORPUSCULAR HGB CONC 33.1 g/dL (33.0-37.0); RBC 3.26 Mil/uL (4.40-5.90); RED CELL DISTRIBUTION WIDTH 15.6 % (11.5-14.5); WHITE BLOOD COUNT 14.4 K/uL (4.8-10.8)
[2018-02-23] MEDS: Albumin Human 25% (12.5 gm/50 ml) IV SCH ×2 (05:36→16:50)
[2018-02-23 05:54] LABS: ALBUMIN 3.5 g/dL (3.5-5.0); CALCIUM 9.4 mg/dL (8.4-10.2)
[2018-02-23] MEDS: Insulin Regular 100 units/ml SC SCH ×3 (06:43→16:46)
[2018-02-23 12:20] LABS: HEPATITIS A IGM NEGATIVE (NEGATIVE)
--- NOTE | 2018-02-23 13:43 | US ---
Date of service: 02/23/2018 HISTORY: ascites, arf, ? hepatorenal sx COMPARISON: None. TECHNIQUE: Sonographic evaluation of the abdomen. FINDINGS: LIVER: Measures 13.6 cm. Mildly heterogeneous echogenicity of the liver parenchyma. Nodular contour consistent with hepatic cirrhosis. No mass. No intrahepatic biliary ductal dilatation. Hepatofugal blood flow demonstrated in the portal vein consistent with portal hypertension and reversal of flow. GALLBLADDER: Contracted gallbladder. Gallstones noted. Diffusely thickened wall, nonspecific. This may be seen in the setting of hepatic cirrhosis without cholecystitis. However, cholecystitis must also be considered. COMMON BILE DUCT: Measures 5 mm. No stones. No dilatation. PANCREAS: Limited visualization. RIGHT KIDNEY: Measures 11.9cm. Normal echogenicity. No calculus, mass, or hydronephrosis. LEFT KIDNEY: Measures 11.9cm. Normal echogenicity. No calculus, mass, or hydronephrosis. SPLEEN: Normal in size and contour. No mass. AORTA: No aneurysmal dilatation. IVC: Unremarkable. OTHER FINDINGS: Extensive ascites IMPRESSION: Hepatic cirrhosis. Portal hypertension and reversal of blood flow in the portal vein. Extensive ascites. Contracted gallbladder with marked mural thickening and cholelithiasis. Cannot rule out cholecystitis though the findings are nonspecific.
--- NOTE | 2018-02-23 14:57 | CP.PCM.PN ---
Subjective - Date & Time of Evaluation Date of Evaluation: 02/23/18 Time of Evaluation: 10:30 - Subjective Subjective: 77 y/o M reports that his abdomen is growing. Pain is tolerable for now. Kirby catheter in place with presence of light red urine on bag. Pt denies chest pain , SOB, N/V, dysuria. Pt afebrile with No acute events overnight. Objective - Vital Signs/Intake and Output Vital Signs (last 24 hours): Temp Pulse Resp BP Pulse Ox 97.3 F L 108 H 20 111/63 95 02/23/18 11:55 02/23/18 11:55 02/23/18 11:55 02/23/18 11:55 02/23/18 11:55 Intake and Output: 02/23/18 02/23/18 06:59 18:59 Intake Total 700 Output Total 600 Balance 100 - Medications Medications: Current Medications Acetaminophen (Tylenol 325mg Tab) 650 mg PO Q6 PRN PRN Reason: Pain, moderate (4-7) Last Admin: 02/23/18 12:44 Dose: 650 mg Albumin Human (Albumin Human 25% (12.5 Gm/50 Ml)) 50 gm IV Q8H [facility] Last Admin: 02/23/18 05:36 Dose: 50 gm Dextrose (Dextrose 50% Inj) 0 ml IV STAT PRN; Protocol PRN Reason: Hypoglycemia Protocol Dextrose (Glutose 15) 0 gm PO ONCE PRN; Protocol PRN Reason: Hypoglycemia Protocol Furosemide (Lasix) 40 mg PO DAILY [facility] Last Admin: 02/23/18 08:41 Dose: Not Given Glucagon (Glucagen Diagnostic Kit) 0 mg IM STAT PRN; Protocol PRN Reason: Hypoglycemia Protocol Hydrochlorothiazide (Hydrodiuril) 25 mg PO DAILY [facility] Piperacillin Sod/Tazobactam (Sod 2.25 gm/ Sodium Chloride) 100 mls @ 100 mls/ hr IVPB Q8 [facility] PRN Reason: Protocol Last Admin: 02/23/18 08:32 Dose: 100 mls/hr Insulin Human Regular (Humulin R) 0 units SC ACHS [facility] PRN Reason: Protocol Last Admin: 02/23/18 11:55 Dose: Not Given Lactulose (Enulose) 20 gm PO TID [facility] Last Admin: 02/23/18 12:44 Dose: 20 gm Lisinopril (Zestril) 20 mg PO DAILY [facility] Last Admin: 02/21/18 09:08 Dose: 20 mg Rifaximin (Xifaxan) 550 mg PO BID [facility] PRN Reason: Protocol Spironolactone (Aldactone) 50 mg PO DAILY [facility] Last Admin: 02/22/18 09:10 Dose: 50 mg - Labs Labs: 02/23/18 04:55 02/23/18 04:55 PT 17.4 Seconds (9.8-13.1) H 02/21/18 11:06 INR 1.6 02/21/18 11:06 APTT 36.1 Seconds (25.6-37.1) 02/21/18 06:10 - Constitutional Appears: No Acute Distress - Eye Exam Additional comments: Loss of vision on Right eye. - ENT Exam ENT Exam: Mucous Membranes Dry - Neck Exam Neck Exam: Full ROM. absent: Meningismus - Respiratory Exam Respiratory Exam: NORMAL BREATHING PATTERN. absent: Rhonchi, Wheezes - Cardiovascular Exam Cardiovascular Exam: REGULAR RHYTHM, +S1, +S2 - GI/Abdominal Exam GI & Abdominal Exam: Soft, Normal Bowel Sounds. absent: Guarding, Rigid, Tenderness - Extremities Exam Extremities Exam: Normal Inspection. absent: Calf Tenderness - Neurological Exam Neurological Exam: Alert, Awake, Oriented x3 Assessment and Plan - Assessment and Plan (Free Text) Assessment: 77 y/o M with PMHx of alcoholism admitted for evaluation of abdominal distension , ascitis and hematuria. --Creatinine raising, acute renal failure, possibly hepatorenal dyndrome. Nephrology consult ordered. --Amonia level and potassium elevated. D/c all diuretics. Lactulose ordered. US abdomen ordered. --Abdominal distension. IR will be contacted for paracentesis. --Urinary retention, kirby in place. --Cystosocopy performed last afternoon. Awaiting results. --Urology on board, Dr Fleming, --GI on board, Dr Sarmiento. --SBP found after paracentesis. --On Zosyn Q8H. --F/u ID recommendations, Dr Hayes, --Monitor BP as pt is becomin hypotensive. --Continue management as ordered.
[2018-02-23] MEDS ORDERED: Sodium Chloride 0.9% 1,000 ML IV SCH (17:15)
--- NOTE | 2018-02-23 17:26 | PCM.RRT ---
KITCHEN[facility] Nurse Assessment - Situation [facility]ENHAND Reason for Call: Tachycardia, Hypotension I.Reason for [facility]EN[facility] - A) Acute Change in Patient: (Select all that apply): Staff member or family is worried about patient Subjective: 77 Y/O male with PMHx of alcoholism admitted for ascitis, hepatorenal syndrome and SBP. KITCHENHAND was called for hypotension. Initial Pulse:109, SPO2 90%, BP 76/42, RR 33. SPO2 improved to 100% with nonrebreather mask. Patient was hypotensive, lethargic and tachycardic. ABG collected and started on 1L NS bolus. Extremity cold and clammy. Patient transferred to ICU for further management. - Neurological Status (Select all that apply): Lethargic Plan - Assessment of Findings&Treatment Plan 77 Y/O male with PMHx of alcoholism admitted for ascitis, hepatorenal syndrome and SBP. KITCHENHAND was called for hypotension. - Vitals: Pulse:109, SPO2 90%, BP 76/42, RR 33. - ABG ordered - Started on NS 1L bolus - Patient transferred to ICU for further management.
[2018-02-23 17:28] LABS: ABG ALLEN TEST YES; ARTERIAL BLOOD GAS HCO3 4.8 mmol/L (21-28); ARTERIAL BLOOD GAS O2 SAT 100.8 % (95-98); ARTERIAL BLOOD GAS PCO2 23 mm/Hg (35-45); ARTERIAL BLOOD GAS PH 6.95 (7.35-7.45); ARTERIAL BLOOD GAS PO2 194 mm/Hg (80-100); ARTERIAL BLOOD GAS TCO2 5.8 mmol/L (22-28)
[2018-02-23] MEDS ORDERED: SODIUM BICARBONATE IV SCH (17:45)
[2018-02-23] MEDS ORDERED: SODIUM CHLORIDE 0.45% IV SCH (17:45)
[2018-02-23] MEDS: Sodium Bicarbonate 7.5% (0.9 MEQ/ML) 50ML INJ IV SCH ×2 (18:00→18:01)
--- NOTE | 2018-02-23 18:25 | CP.PCM.CON ---
History of Present Illness - History of Present Illness History of Present Illness: 77 yo M with diabetes and hypertension, R eye blindness, admitted due to abdominal pain due to ascites with liver dysfunction. p/w abdominal ascites, recently tapped. Was scheduled to get another paracentesis today, but was cancelled due to instability. Rapid Response called for AMS, hypotension, and hypoxia. Review of Systems - Review of Systems Systems not reviewed;Unavailable: Altered Mental Status Past Patient History - Past Social History Smoking Status: Former Smoker Alcohol: Other (not current, but used to drink heavily on weekends in the past) Drugs: Denies - CARDIAC Hx Cardiac Disorders: Yes Hx Hypercholesterolemia: Yes Hx Hypertension: Yes - PULMONARY Hx Respiratory Disorders: No - NEUROLOGICAL Hx Neurological Disorder: No - HEENT Hx HEENT Problems: Yes Hx Blind: Yes (rt eye) - RENAL Hx Chronic Kidney Disease: No - ENDOCRINE/METABOLIC Hx Endocrine Disorders: Yes Hx Diabetes Mellitus Type 1: Yes - HEMATOLOGICAL/ONCOLOGICAL Hx Blood Disorders: No Hx AIDS: No Hx Human Immunodeficiency Virus (HIV): No - INTEGUMENTARY Hx Dermatological Problems: No - MUSCULOSKELETAL/RHEUMATOLOGICAL Hx Musculoskeletal Disorders: No Hx Falls: No - GASTROINTESTINAL Hx Gastrointestinal Disorders: Yes Hx Gastritis: Yes - GENITOURINARY/GYNECOLOGICAL Hx Genitourinary Disorders: No - PSYCHIATRIC Hx Psychophysiologic Disorder: No Hx Substance Use: No - SURGICAL HISTORY Hx Surgeries: Yes Hx Herniorrhaphy: Yes Other/Comment: abdominal hernia, right eye blind - ANESTHESIA Hx Anesthesia: Yes Hx Anesthesia Reactions: No Meds Allergies/Adverse Reactions: Allergies Allergy/AdvReac Type Severity Reaction Status Date / Time No Known Allergies Allergy Unverified 02/06/15 09:08 - Medications Medications: Current Medications Acetaminophen (Tylenol 325mg Tab) 650 mg PO Q6 PRN PRN Reason: Pain, moderate (4-7) Last Admin: 02/23/18 12:44 Dose: 650 mg Albumin Human (Albumin Human 25% (12.5 Gm/50 Ml)) 50 gm IV Q8H [facility] Last Admin: 02/23/18 16:50 Dose: Not Given Dextrose (Dextrose 50% Inj) 0 ml IV STAT PRN; Protocol PRN Reason: Hypoglycemia Protocol Dextrose (Glutose 15) 0 gm PO ONCE PRN; Protocol PRN Reason: Hypoglycemia Protocol Furosemide (Lasix) 40 mg PO DAILY [facility] Last Admin: 02/23/18 08:41 Dose: Not Given Glucagon (Glucagen Diagnostic Kit) 0 mg IM STAT PRN; Protocol PRN Reason: Hypoglycemia Protocol Haloperidol Lactate (Haldol) 5 mg IVP Q6 PRN PRN Reason: Agitation Hydrochlorothiazide (Hydrodiuril) 25 mg PO DAILY [facility] Piperacillin Sod/Tazobactam (Sod 2.25 gm/ Sodium Chloride) 100 mls @ 100 mls/ hr IVPB Q8 [facility] PRN Reason: Protocol Last Admin: 02/23/18 16:50 Dose: Not Given Sodium Chloride (Sodium Chloride 0.9%) 1,000 mls @ 999 mls/hr IV .Q1H1M [facility] Stop: 02/24/18 17:15 Last Admin: 02/23/18 18:04 Dose: 999 mls/hr Sodium Bicarbonate 133.8 meq/ (Sodium Chloride) 1,150 mls @ 125 mls/hr IV .Q9H12M [facility] Stop: 02/24/18 17:37 Last Admin: 02/23/18 18:05 Dose: 125 mls/hr Insulin Human Regular (Humulin R) 0 units SC ACHS [facility] PRN Reason: Protocol Last Admin: 02/23/18 16:46 Dose: Not Given Lactulose (Enulose) 20 gm PO TID [facility] Last Admin: 02/23/18 16:46 Dose: Not Given Lisinopril (Zestril) 20 mg PO DAILY [facility] Last Admin: 02/21/18 09:08 Dose: 20 mg Rifaximin (Xifaxan) 550 mg PO BID [facility] PRN Reason: Protocol Spironolactone (Aldactone) 50 mg PO DAILY [facility] Last Admin: 02/22/18 09:10 Dose: 50 mg Physical Exam - Constitutional Appears: Cachectic, Other (jaundiced) - Head Exam Head Exam: ATRAUMATIC, NORMAL INSPECTION, NORMOCEPHALIC - Eye Exam Eye Exam: EOMI, Normal appearance, PERRL - ENT Exam ENT Exam: Mucous Membranes Dry - Respiratory Exam Respiratory Exam: Clear to Auscultation Bilateral, NORMAL BREATHING PATTERN - Cardiovascular Exam Cardiovascular Exam: REGULAR RHYTHM - GI/Abdominal Exam GI & Abdominal Exam: Distended, Hypoactive Bowel Sounds - Extremities Exam Extremities exam: Positive for: normal inspection - Back Exam Back exam: NORMAL INSPECTION - Neurological Exam Neurological exam: Altered - Psychiatric Exam Psychiatric exam: Agitated Results - Vital Signs Recent Vital Signs: Last Vital Signs Temp 97.3 F L 02/23/18 11:55 Pulse 132 H 02/23/18 17:16 Resp 18 02/23/18 17:16 BP 96/64 L 02/23/18 17:16 Pulse Ox 95 02/23/18 11:55 - Labs Result Diagrams: 02/23/18 04:55 02/23/18 04:55 Labs: Laboratory Results - last 24 hr 02/20/18 02/22/18 02/22/18 12:45 20:11 21:56 WBC RBC Hgb Hct MCV MCH MCHC RDW Plt Count pCO2 pO2 HCO3 ABG pH ABG Total CO2 ABG O2 Saturation ABG Base Excess Tawanda Test ABG Potassium A-a O2 Difference Glucose Lactate FiO2 Blood Gas Comments Crit Value Called To Crit Value Called By Crit Value Read Back Blood Gas Notified Time Sodium Potassium Chloride Carbon Dioxide Anion Gap BUN Creatinine Est GFR ( Amer) Est GFR (Non-Af Amer) POC Glucose (mg/dL) 189 H Random Glucose Calcium Phosphorus Magnesium Total Bilirubin AST ALT Alkaline Phosphatase Ammonia Total Protein Albumin Globulin Albumin/Globulin Ratio Prostate Specific Ag Arterial Blood Potassium Fluid Albumin 0.6 Random Vancomycin Hepatitis A IgM Ab Negative Hepatitis A Ab Total Antibody pos 02/23/18 02/23/18 02/23/18 04:42 04:55 04:55 WBC 14.4 H RBC 3.26 L Hgb 10.4 L Hct 31.4 L MCV 96.3 H MCH 31.9 H MCHC 33.1 RDW 15.6 H Plt Count 137 pCO2 pO2 HCO3 ABG pH ABG Total CO2 ABG O2 Saturation ABG Base Excess Tawanda Test ABG Potassium A-a O2 Difference Glucose Lactate FiO2 Blood Gas Comments Crit Value Called To Crit Value Called By Crit Value Read Back Blood Gas Notified Time Sodium 139 Potassium 6.0 H Chloride 104 Carbon Dioxide 18 L Anion Gap 23 H BUN 68 H Creatinine 3.9 H Est GFR ( Amer) 18 Est GFR (Non-Af Amer) 15 POC Glucose (mg/dL) 118 H Random Glucose 98 Calcium 9.4 Phosphorus 8.0 H Magnesium 1.8 Total Bilirubin 2.3 H AST 137 H D ALT 54 Alkaline Phosphatase 61 Ammonia Total Protein 7.0 Albumin 3.5 D Globulin 3.5 Albumin/Globulin Ratio 1.0 Prostate Specific Ag 2.13 Arterial Blood Potassium Fluid Albumin Random Vancomycin Hepatitis A IgM Ab Hepatitis A Ab Total 02/23/18 02/23/18 02/23/18 04:55 04:55 11:21 WBC RBC Hgb Hct MCV MCH MCHC RDW Plt Count pCO2 pO2 HCO3 ABG pH ABG Total CO2 ABG O2 Saturation ABG Base Excess Tawanda Test ABG Potassium A-a O2 Difference Glucose Lactate FiO2 Blood Gas Comments Crit Value Called To Crit Value Called By Crit Value Read Back Blood Gas Notified Time Sodium Potassium Chloride Carbon Dioxide Anion Gap BUN Creatinine Est GFR ( Amer) Est GFR (Non-Af Amer) POC Glucose (mg/dL) 98 Random Glucose Calcium Phosphorus Magnesium Total Bilirubin AST ALT Alkaline Phosphatase Ammonia 76 H D Total Protein Albumin Globulin Albumin/Globulin Ratio Prostate Specific Ag Arterial Blood Potassium Fluid Albumin Random Vancomycin 8.4 Hepatitis A IgM Ab Hepatitis A Ab Total 02/23/18 02/23/18 16:34 17:21 WBC RBC Hgb Hct MCV MCH MCHC RDW Plt Count pCO2 23 L pO2 194 H HCO3 4.8 L* ABG pH 6.95 L* ABG Total CO2 5.8 L ABG O2 Saturation 100.8 H ABG Base Excess -25.8 L Tawanda Test Yes ABG Potassium 5.2 A-a O2 Difference 490.0 Glucose 31 L* Lactate 17.3 H* FiO2 100.0 Blood Gas Comments Lac=17.3 Crit Value Called To kiana Garcia Crit Value Called By 22 Crit Value Read Back Y Blood Gas Notified Time 1727 Sodium 135.0 Potassium Chloride 99.0 Carbon Dioxide Anion Gap BUN Creatinine Est GFR ( Amer) Est GFR (Non-Af Amer) POC Glucose (mg/dL) 51 L Random Glucose Calcium Phosphorus Magnesium Total Bilirubin AST ALT Alkaline Phosphatase Ammonia Total Protein Albumin Globulin Albumin/Globulin Ratio Prostate Specific Ag Arterial Blood Potassium 5.2 Fluid Albumin Random Vancomycin Hepatitis A IgM Ab Hepatitis A Ab Total Assessment & Plan (1) Hepatic encephalopathy Assessment and Plan: 77 yo M with diabetes and hyptertension, R eye blindness, admitted due to abdominal pain due to ascites with liver dysfunction. p/w spontaneous bacterial peritonitis. Neuro: hepatic and metabolic encephalopathy. Haldol prn for agitation. Continue Rifaximin and Lactulose. Pulm: no acute issues, breathing spontaneously on 2L [place] oxygen. CV: hypotensive, will start albumin bolusing. Hem: anemia of chronic disease Renal: severe metabolic lactic acidosis secondary to liver failure. Starting bicarb drip. Hematuria s/p cystoscopy (02/22), urology aware. Endo: DM type 2, SISS for coverage GI: NPO. end stage liver cirrhosis, mortality extremely high. ID: sepsis from spontaneous bacterial peritonitis, continue Zosyn. DVT proph - heparin sq GI proph - not currently indicated kirby for strict I/O's during acute illness Code status - full code Patient has no family, only a neighbor is listed and she does not want to make decisions about him. Extremely poor prognosis with high mortality risk. Critical Care Time spent 35 minutes Multi-disciplinary rounds were performed with house staff, nursing, speech therapy, respiratory therapy, pharmacy and nutrition with integrated input from the primary team/attending and other consulting services. The documented time is cumulative and includes review of patient data/exams/labs/chart review and examination of the patient on rounds and throughout the day; time is exclusive of any procedures or teaching time. Status: Acute
[2018-02-23] MEDS ORDERED: Dexmedetomidine Hydrochloride 400 MCG in Sodium Chloride 0.9% 96 ML IV SCH (18:36)
--- NOTE | 2018-02-23 19:42 | CP.PCM.PN ---
Subjective - Date & Time of Evaluation Date of Evaluation: 02/23/18 Time of Evaluation: 07:00 - Subjective Subjective: 77 yo M admitted due to abdominal pain due to ascites with liver dysfunction, likely due to long time alcohol use in the past. Had paracentesis for suspected SBP with worsening renal function Now had rapid response due to resp failure Objective - Vital Signs/Intake and Output Vital Signs (last 24 hours): Temp Pulse Resp BP Pulse Ox 97.3 F L 132 H 18 96/64 L 95 02/23/18 11:55 02/23/18 17:16 02/23/18 17:16 02/23/18 17:16 02/23/18 11:55 - Medications Medications: Current Medications Acetaminophen (Tylenol 325mg Tab) 650 mg PO Q6 PRN PRN Reason: Pain, moderate (4-7) Last Admin: 02/23/18 12:44 Dose: 650 mg Albumin Human (Albumin Human 25% (12.5 Gm/50 Ml)) 50 gm IV Q8H [facility] Last Admin: 02/23/18 16:50 Dose: Not Given Dextrose (Dextrose 50% Inj) 0 ml IV STAT PRN; Protocol PRN Reason: Hypoglycemia Protocol Dextrose (Glutose 15) 0 gm PO ONCE PRN; Protocol PRN Reason: Hypoglycemia Protocol Furosemide (Lasix) 40 mg PO DAILY [facility] Last Admin: 02/23/18 08:41 Dose: Not Given Glucagon (Glucagen Diagnostic Kit) 0 mg IM STAT PRN; Protocol PRN Reason: Hypoglycemia Protocol Haloperidol Lactate (Haldol) 5 mg IVP Q6 PRN PRN Reason: Agitation Last Admin: 02/23/18 18:35 Dose: 5 mg Hydrochlorothiazide (Hydrodiuril) 25 mg PO DAILY [facility] Piperacillin Sod/Tazobactam (Sod 2.25 gm/ Sodium Chloride) 100 mls @ 100 mls/ hr IVPB Q8 [facility] PRN Reason: Protocol Last Admin: 02/23/18 16:50 Dose: Not Given Sodium Chloride (Sodium Chloride 0.9%) 1,000 mls @ 999 mls/hr IV .Q1H1M [facility] Stop: 02/24/18 17:15 Last Admin: 02/23/18 18:04 Dose: 999 mls/hr Sodium Bicarbonate 133.8 meq/ (Sodium Chloride) 1,150 mls @ 125 mls/hr IV .Q9H12M [facility] Stop: 02/24/18 17:37 Last Admin: 02/23/18 18:05 Dose: 125 mls/hr Dexmedetomidine HCl 400 mcg/ (Sodium Chloride) 100 mls @ 4.08 mls/hr IV .Q24H [facility]; 0.2 MCG/KG/HR PRN Reason: Protocol Last Admin: 02/23/18 18:46 Dose: 0.2 mcg/kg/hr, 4.08 mls/hr Norepinephrine Bitartrate 16 (mg/ Dextrose) 266 mls @ 2.49 mls/hr IV .Q24H [facility] PRN Reason: 2.5 MCG/MIN Insulin Human Regular (Humulin R) 0 units SC ACHS [facility] PRN Reason: Protocol Last Admin: 02/23/18 16:46 Dose: Not Given Lactulose (Enulose) 20 gm PO TID [facility] Last Admin: 02/23/18 16:46 Dose: Not Given Lisinopril (Zestril) 20 mg PO DAILY [facility] Last Admin: 02/21/18 09:08 Dose: 20 mg Rifaximin (Xifaxan) 550 mg PO BID [facility] PRN Reason: Protocol Spironolactone (Aldactone) 50 mg PO DAILY [facility] Last Admin: 02/22/18 09:10 Dose: 50 mg - Labs Labs: 02/23/18 04:55 02/23/18 04:55 PT 17.4 Seconds (9.8-13.1) H 02/21/18 11:06 INR 1.6 02/21/18 11:06 APTT 36.1 Seconds (25.6-37.1) 02/21/18 06:10 - Constitutional Appears: In Acute Distress, Confused, Chronically Ill - Head Exam Head Exam: NORMOCEPHALIC Additional comments: intuibated - Eye Exam Eye Exam: Scleral icterus - ENT Exam ENT Exam: Mucous Membranes Dry - Neck Exam Neck Exam: absent: Lymphadenopathy - Respiratory Exam Respiratory Exam: Decreased Breath Sounds - Cardiovascular Exam Cardiovascular Exam: REGULAR RHYTHM - GI/Abdominal Exam GI & Abdominal Exam: Distended, Tenderness, Diminished Bowel Sounds - Rectal Exam Rectal Exam: Deferred - Exam Exam: NORMAL INSPECTION - Extremities Exam Extremities Exam: absent: Pedal Edema - Back Exam Back Exam: absent: CVA tenderness (L), CVA tenderness (R) - Neurological Exam Neurological Exam: Altered Assessment and Plan (1) [id number] kidney injury Status: Acute (2) Ascites Status: Acute (3) Hematuria Status: Acute (4) Hyperlipidemia Status: Chronic (5) Hypertension Status: Chronic (6) CKD (chronic kidney disease) stage 3, GFR 30-59 ml/min Status: Suspected - Assessment and Plan (Free Text) Assessment: hepatorenal syndrome sepsis resp failure r/o SBP r/o ischemic bowel poor prognosis IV rx reordered
--- NOTE | 2018-02-23 19:49 | PCM.ANES ---
Anesthesia Emergent Intubation - Diagnosis Working Diagnosis:: Cardiac arrest - Consult Reason for Consult:: Respiratory failure folloing ROS - Intubation Attempts Previous Number of Intubation Attempts:: 0 - Pre-Intubation Vital Signs Blood Pressure: 38/25 Heart Rate: 88 Respiratory Rate: 0 O2 Sat: 0 (undetectably by pulse oximetry) FIO2: 100 Oxygen Delivery Method: Ambu-Bag Level Of Consciousness: Comatose/Unresponsive - Airway Management Oropharyngeal Area Suctioned: Yes PreOxygenation: 100 (By RT) Inhalation: No Rapid Sequence: No Cricoid Pressure: No Possible Aspiration: No (No gastric contents seen on DL unknown prior to laryngoscopy) - Method of Intubation Intubation Method: Oral ETT ETT Size: 8 Lipline@: 23 Easy: Yes Atramatic: Yes - Intubation Devices Frederic Blade Size Used: 3 Nancy Forcepts Used: No [place] Scope Used: No Fiber Optic Scope: No - Placement Confirmation Breath Sounds Present & Equal Bilaterally: Yes Gurgling Sounds Not Audible at Epigastrum: Yes Positive EtCO2: Yes Portable CXR: Yes (Ordered by primary team) Recommendations: Ventilator, Chest X Ray, ABG - Post-Intubation Vital Signs Blood Pressure: 88/44 Heart Rate: 95 Respiratory Rate: 14 (On ventilator) O2 Sat: 100 (by blood gas) FIO2: 100
[2018-02-23 20:05] VITALS: TEMP 97.1
--- NOTE | 2018-02-23 20:08 | PCM.PROC ---
Procedures Attestation:: I certify that I have explained the specified Operation(s) or Procedure(s), risks, benefits and reasonable alternatives to the Patient and/or other person responsible. The opportunity was given to ask questions and all questions answered - Central Line Placement Left Femoral Triple Lumen Catheter Aseptic technique was employed throughout the procedure: Hand Hygiene done prior to procedure, Full sterile barriers (mask, hair cover, sterile gown, sterile gloves), Full body sterile drape, Chloraprep Antiseptic: 2 minute prep for Femoral CVP Time Out Performed: Yes Pt. Placed on Pulse Ox Monitor: Yes Central Line Prep: Povidone-Iodine 1% Ultrasound Used for Placement: No Central Line Lumen Inserted: triple Central Line Length: 20 cm Post Procedure: Sutured in Place, Good Blood Return, All Ports Aspirated, Flushed, Capped, Sterile Dressing Applied Secured by: Suture Post procedure dressing: Chlorhexidine disc (Biopatch) Post Procedure X-Ray: No Patient Tolerated Procedure: Well Immediate Complications: None Additional Comments: Patient comatose s/p code blue, femoral pulse present. left femoral central line placed with Hospitalist Supervision Herman Calvert
--- NOTE | 2018-02-23 21:43 | CP.PCM.PRO ---
Pronouncement of Note - Clinical Findings Physical Exam: No Response Verbal/Painful Stimuli, Absent Peripheral Pulses{ Carotid & Femoral}, Absent Heart & Breath Sounds, No Pupillary Light Reflex, No Corneal Reflex, Pupils Fixed & Dilated, Absence of Vital Signs - Pronouncement Time Time of Pronouncement of : 21:08 - Notifications Pronouncement Notifications: Atending Notified Pipe Bowl Paint Trimmer Notified: No - Autopsy Autopsy Requested: No - [place]: [id number] Additional Comments: Patient went into cardiac arrest 3 times this evening. Please see code blue sheets for details. The patient at 9:08 pm after going into PEA/Asystole.
[2018-02-24 02:16] VITALS: O2SAT 100
[2018-02-24 02:18] VITALS: BP 55/39; PULSE 84; RESP 15
--- NOTE | 2018-02-24 13:17 | RAD ---
Date of service: 02/23/2018 PROCEDURE: CHEST RADIOGRAPH, 1 VIEW HISTORY: s/p intubation COMPARISON: None available. FINDINGS: LUNGS: Probable subsegmental atelectasis at right base. No infiltrate. PLEURA: No pneumothorax or pleural fluid seen. CARDIOVASCULAR: Normal heart size. ET tube approximately 1.2 cm above tracheal juan. Consider withdrawn by several cm. Mild congestive change. OSSEOUS STRUCTURES: No significant abnormalities. VISUALIZED UPPER ABDOMEN: Normal. OTHER FINDINGS: None. IMPRESSION: Mild congestive change. ET tube 1.2 cm above tracheal juan. Consider repositioning several cm proximal. No infiltrate.
== END 2018-02-23 21:08 | DRG 871 ==
LOC: H.ER 08:42 → H.ERHOLD 12:12 → H.MEDSURG1 15:25 → OBSVTOIN 02-22 14:57 → H.TEL 02-22 17:39 → H.ICU/CCU 02-23 17:23
PROVIDERS: ADMIT Family Medicine; ATTEND Family Medicine
PROC: 0W9G3ZZ Drainage of Peritoneal Cavity, Percutaneous Approach (ICD-10-PCS; 2018-02-21)
PROC: 0T9B80Z Drainage of Bladder with Drainage Device, Via Natural or Artificial Opening Endoscopic (ICD-10-PCS; principal; 2018-02-22 12:15)
PROC: 06HY33Z Insertion of Infusion Device into Lower Vein, Percutaneous Approach (ICD-10-PCS; 2018-02-23)
PROC: 3E03329 Introduction of Other Anti-infective into Peripheral Vein, Percutaneous Approach (ICD-10-PCS; 2018-02-23)
PROC: 5A1935Z Respiratory Ventilation, Less than 24 Consecutive Hours (ICD-10-PCS; 2018-02-23)
PROC: 0BH17EZ Insertion of Endotracheal Airway into Trachea, Via Natural or Artificial Opening (ICD-10-PCS; 2018-02-23)
PROC: 5A12012 Performance of Cardiac Output, Single, Manual (ICD-10-PCS; 2018-02-23)
DX: A41.9 Sepsis, unspecified organism (principal); G93.41 Metabolic encephalopathy; J96.91 Respiratory failure, unspecified with hypoxia; K76.7 Hepatorenal syndrome; K65.2 Spontaneous bacterial peritonitis; E87.2 Acidosis; K76.6 Portal hypertension; N17.9 Acute kidney failure, unspecified; N32.89 Other specified disorders of bladder; I46.9 Cardiac arrest, cause unspecified; N18.3 Chronic kidney disease, stage 3 (moderate); I12.9 Hypertensive chronic kidney disease with stage 1 through stage 4 chronic kidney disease, or unspecified chronic kidney disease; F10.21 Alcohol dependence, in remission; K70.40 Alcoholic hepatic failure without coma; K70.31 Alcoholic cirrhosis of liver with ascites; E11.22 Type 2 diabetes mellitus with diabetic chronic kidney disease; I95.89 Other hypotension; R31.9 Hematuria, unspecified; R33.9 Retention of urine, unspecified; D63.8 Anemia in other chronic diseases classified elsewhere; E78.5 Hyperlipidemia, unspecified; E78.00 Pure hypercholesterolemia, unspecified; K29.70 Gastritis, unspecified, without bleeding; H54.61 Unqualified visual loss, right eye, normal vision left eye; Z79.4 Long term (current) use of insulin; Z87.891 Personal history of nicotine dependence